=== PATIENT | female | born 2000 | race Caucasian/White ===

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

== ENCOUNTER → 2018-07-05 | Outpatient (CLI) | payer OTHER | END | disposition home or self-care (01) | LOC: C.LAB 11:50 | PROVIDERS: ATTEND Family Medicine | DX: Z13.29 Encounter for screening for other suspected endocrine disorder (principal); Z13.21 Encounter for screening for nutritional disorder; Z13.228 Encounter for screening for other metabolic disorders; Z13.0 Encounter for screening for diseases of the blood and blood-forming organs and certain disorders involving the immune mechanism ==

== ENCOUNTER → 2018-07-09 | Outpatient (CLI) | payer OTHER | END | disposition home or self-care (01) | LOC: C.LAB 11:49 | PROVIDERS: ATTEND Family Medicine | DX: Z13.29 Encounter for screening for other suspected endocrine disorder (principal); Z13.21 Encounter for screening for nutritional disorder; Z13.228 Encounter for screening for other metabolic disorders; Z13.0 Encounter for screening for diseases of the blood and blood-forming organs and certain disorders involving the immune mechanism ==

== ENCOUNTER 2025-03-18 07:31 | Inpatient (IN) ==
[2025-03-18] MEDS ORDERED: LIDOCAINE 1% LOCAL 20 ML VIAL INFIL PRN (08:29)
[2025-03-18] MEDS: LACTATED RINGER'S 1,000 ML IV PRN (09:09)
[2025-03-18] MEDS: OXYTOCIN 30 UNITS/NSS 30 UNITS/500 ML BAG IV PRN ×2 (09:11→23:58)
[2025-03-18 09:15] LABS: Hematocrit (blood only) 38.6 % (37.0-47.0); Hemoglobin 13.2 g/dl (12.0-16.0); Mean Corpuscular Hemoglobin 31.1 pg (25.0-34.0); Mean Corpuscular Hgb Conc 34.2 g/dL (32.0-36.0); Mean Platelet Volume 10.6 fL (9.4-12.4); Platelet Count 252 K/uL (130-400); RDW Coefficient of Variation 13.5 % (11.5-14.5); RDW Standard Deviation 43.7 fL (36.4-46.3); Red Blood Count 4.24 M/uL (4.20-5.40); White Blood Count 7.59 K/ul (4.8-10.8)
--- NOTE | 2025-03-18 09:19 | History & Physical Report ---
Date of Service March 18, 2025 Assessment & Plan (1) Supervision of normal intrauterine in primigravida: Plan: Deepti is a 24-year-old currently at 39 weeks 2 days gestational age presents for induction of labor. 1. Fetus: Category 1 tracing 2. Labor: Will start with oxytocin per regular protocol. Will plan for rupture of membranes when appropriate 3. GBS negative 4. Vitals within normal limits (2) Encounter for induction of labor: Admission and Anticipated Discharge Date Admission Date: March 18, 2025 History of Present Illness Primary Care Provider: Belkys Woodward DO Deepti is a 24-year-old G1, P0 currently at 39 weeks 2 days gestational age presents for induction of labor. plans: Obesity (BMI 40 and higher @ beginning of ) *Growth US @ 32wks *Weekly NSTs @ 34wks *BMI 40 or greater offer detailed/level II anatomy at [facility] *BMI 40 or above offer delivery by [facility].----IOL 03/18 *BMI 50 or greater scheduled detailed/level II anatomy at [facility] Rubella Equivocal *Recommend PPX MMR Low dose aspirin *Nulliparity and increase BM OB Labs: Blood Type O Positive 08/06/24 Antibody Screen NEGATIVE 08/06/24 Hgb 12.9 g/dl (12.0-16.0) 01/01/25 Hct 36.5 % (37.0-47.0) L 01/01/25 MCV 87.4 fL (80.0-100.0) 12/19/24 Plt Count 233 K/uL (130-400) 12/19/24 Rubella IgG Antibody Equivocal (Immune) L 08/06/24 Treponema pallidum Ab Negative (Negative) 01/01/25 Hep Bs Antigen Negative (Negative) 08/06/24 Hepatitis C Antibody Negative (Negative) 08/06/24 Hepatitis C Ab (EIA) NON-REACTIVE (NON-REACTIVE) 03/09/23 HIV 1&2 Ab/P24 Ag 4thGn Negative (Negative) 08/06/24 Glucose 1 Hr 50 gm 139 mg/dl (70-130) H 10/08/24 OB Optional Labs: Chlamydia trachomatis RNA Not Detected (NotDetected) 08/06/24 Neisseria gonorrhoeae RNA Not Detected (NotDetected) 08/06/24 Thyroid Stimulating Hormone (TSH) 2.080 uIu/ml (0.300-4.500) 04/24/19 Labs Reviewed: Declines genetics--mln passed 16 week gtt-alh Allergies Allergy/AdvReac Type Severity Reaction Status Date / Time chlorhexidine Allergy Mild Rash Verified 03/18/25 08:03 Penicillins Allergy Mild Hives Verified 03/18/25 08:03 Sulfa (Sulfonamide Allergy Mild Hives Verified 03/18/25 08:03 Antibiotics) tree nut Allergy Mild Mouth Verified 03/18/25 08:03 tingly Home Medications Medication Instructions Recorded Confirmed Type fluticasone propionate 50 2 spray intranasal DAILY PRN 06/24/19 03/18/25 History mcg/actuation nasal Allergy Symptoms spray,suspension (Flonase Allergy Relief) bupropion HCl 150 mg tablet,12 hr 150 mg PO QAM 04/26/24 03/18/25 History sustained-release (Wellbutrin SR) albuterol sulfate 90 mcg/actuation 1 inh inhalation QID PRN Shortness 06/03/24 03/18/25 History breath activated powder inhaler Of Breath prenat.vits,mag,fgi-[id number]-jferx 1 tab PO DAILY 07/30/24 03/18/25 History sertraline 50 mg tablet 125 mg PO DAILY 12/03/24 03/18/25 History breast pump #1 ea 02/13/25 03/17/25 Rx Patient History Medical History (Updated 03/18/25 @ 09:18 by Rogelio Caldera MD) History of COVID-07 Sep 2023 GERD (gastroesophageal reflux disease) no meds > controlled Temporomandibular joint disorder occ clicks, no locking Anxiety Asthma well controlled > only uses inhaler if sick Seasonal allergies Nausea and vomiting after administration of anesthetic agent Surgical History (Updated 03/18/25 @ 08:03 by Johanna Mccormack RN) History of arthroscopy of right shoulder History of cholecystectomy Hx of hand surgery Right Little Finger Excisional Biopsy(Right) x 2 History of surgery birthmark removed off right ankle History of tooth extraction wisdom teeth Family History Grandmother (Paternal) Lupus Breast cancer Grandmother (Maternal) Cancer Family/Other Ovarian cancer Grandfather (Paternal) Prostate cancer Kidney disease Grandfather (Maternal) Lung cancer Other Colon cancer Diabetes Hypertension Liver disease Twin Social History Smoking Status: Never smoker Second Hand Exposure: No; Do You Dip or Chew Tobacco: No; Hx Alcohol Use: No Hx Substance Use: No Preferred Language: Vietnamese Communication Ability: Effective Canceling And Cutting Control Clerk Required: No Beliefs That Will Affect Care: None marital status: marital status details: Jone (28) [phone] Current Living Situation: Spouse Current Living Situation Comment: lives with spouse, no pets. current occupational status: employed current occupation: Nurse at [employer] Other Information That Helps Us Care for You: No Feels Safe at Home: Yes Safety Concerns: Feels Safe At This Time Assistive Devices: None Physical Exam Genitourinary: Manual OB Exam: + cervical dilation 3 cm, + cervical effacement 70% and + station -2 OB Exam Monitor Tracing: + external FHT monitor used, + external uterine monitor used, + category I and + normal FHT variability Results & Data Vital Signs (Past 12 Hours) Vital Signs Temp Pulse Resp BP 03/18/25 09:07 85 03/18/25 09:07 130/75 03/18/25 07:48 37.0 C 20 03/18/25 07:45 123 H 121/68 Coding Level of Care Code None Diagnoses Encounter for supervision of normal first in third trimester Z34.03 Trimester: third trimester Encounter for induction of labor Z34.90 (1) Supervision of normal intrauterine in primigravida Trimester: third trimester Qualified Code(s): Z34.03 - Encounter for supervision of normal first , third trimester
[2025-03-18] MEDS ORDERED: ePHEDrine sulfate 50 MG/ML AMP ONE (15:19)
[2025-03-18] MEDS: ACETAMINOPHEN 500 MG TAB PO PRN (15:39)
[2025-03-18] MEDS: LIDOCAINE 2%/EPINEPHRINE 1:200,000 20 ML PF ONE (16:14)
[2025-03-18] MEDS: fentANYL 2 MCG/ML BUPIVacaine 0.125%-NSS 100ML BAG ONE (16:15)
[2025-03-18] MEDS: BUPIVACAINE 0.25% PF 30 ML VIAL ONE (16:15)
[2025-03-18] MEDS: SODIUM CHLORIDE 0.9% PF INJ 10 ML VIAL ONE (16:15)
[2025-03-18] MEDS: fentaNYL citrate PF 100 MCG/2 ML VIAL ONE (16:16)
[2025-03-18] MEDS ORDERED: NALOXONE HCL 1 MG in SODIUM CHLORIDE 0.9% 1,000 ML IV PRN (16:24)
[2025-03-18] MEDS ORDERED: BUPIVACAINE 0.25% PF 30 ML VIAL EPI PRN (16:24)
[2025-03-18] MEDS ORDERED: PROMETHAZINE 6.25 MG/50.25 ML BAG IV PRN (16:24)
[2025-03-18] MEDS ORDERED: ROPIVACAINE 0.5% PF 5 MG/ML 20 ML VIAL EPI PRN (16:24)
[2025-03-18] MEDS ORDERED: LIDOCAINE 2% MPF LOCAL 5 ML VIAL EPI PRN (16:24)
[2025-03-18] MEDS ORDERED: ONDANSETRON INJ 2 MG/ML 2 ML VIAL IV PRN (16:24)
[2025-03-18] MEDS ORDERED: fentaNYL citrate PF 100 MCG/2 ML VIAL EPI PRN (16:24)
[2025-03-18] MEDS ORDERED: fentANYL 2 MCG/ML BUPIVacaine 0.125%-NSS 100ML BAG EPI PRN (16:24)
[2025-03-18] MEDS ORDERED: SODIUM CHLORIDE 0.9% PF INJ 10 ML VIAL EPI PRN (16:24)
[2025-03-18] MEDS ORDERED: NALBUPHINE HCL INJ 10 MG/ML AMP IV PRN (16:24)
[2025-03-18] MEDS ORDERED: diphenhydrAMINE 50 MG/ML VIAL IV PRN (16:24)
[2025-03-18] MEDS ORDERED: ePHEDrine sulfate 50 MG/ML AMP IV PRN (16:24)
[2025-03-18] MEDS ORDERED: NALOXONE HCL 0.4 MG/1 ML VIAL/CARP IV PRN (16:24)
--- NOTE | 2025-03-18 16:24 | Anesthesiology Consultation ---
Date of Service March 18, 2025 Assessment & Plan Chart Review Chart Review: Patient NOT seen in Pre Admission Testing and Acceptable Risk for Labor Epidural Consults Requested none ASA ASA2 Proposed Anesthesia Anesthesia Type: Labor Epidural Risk / Benefits Reviewed With: PT / POA / Parent / Guardian, Accepts Plan and Informed Consent Obtained History Height/Weight Height: 5 ft 6 in Weight: 120.656 kg Allergies Allergy/AdvReac Type Severity Reaction Status Date / Time chlorhexidine Allergy Mild Rash Verified 03/18/25 08:03 Penicillins Allergy Mild Hives Verified 03/18/25 08:03 Sulfa (Sulfonamide Allergy Mild Hives Verified 03/18/25 08:03 Antibiotics) tree nut Allergy Mild Mouth Verified 03/18/25 08:03 tingly Medications Home Medications Medication Instructions Recorded Confirmed Last Taken fluticasone propionate 50 2 spray intranasal DAILY PRN 06/24/19 03/18/25 Unknown mcg/actuation nasal Allergy Symptoms spray,suspension (Flonase Allergy Relief) bupropion HCl 150 mg tablet,12 hr 150 mg PO QAM 04/26/24 03/18/25 03/18/25 06:00 sustained-release (Wellbutrin SR) albuterol sulfate 90 mcg/actuation 1 inh inhalation QID PRN Shortness 06/03/24 03/18/25 Unknown breath activated powder inhaler Of Breath prenat.vits,mag,idn-rubl-khzfk 1 tab PO DAILY 07/30/24 03/18/25 03/17/25 08:00 sertraline 50 mg tablet 125 mg PO DAILY 12/03/24 03/18/25 03/17/25 21:00 breast pump #1 ea 02/13/25 03/17/25 Unknown Active Medications Generic Name Dose Route Start Last Admin Trade Name Freq PRN Reason Stop Dose Admin Acetaminophen 1,000 mg 03/18/25 08:29 03/18/25 15:39 Acetaminophen 500 Mg Tab PO 04/17/25 08:28 1,000 mg Q8H PRN Administration Pain Lactated Ringer's 1,000 mls @ 125 mls/hr 03/18/25 08:29 03/18/25 16:15 Lr IV 03/19/25 08:28 125 mls/hr .Q8H PRN Infusion L&D Protocol Protocol Oxytocin 30 units in 500 mls @ 18 mls/hr 03/18/25 08:29 03/18/25 15:00 Pitocin 30 Units/Nss IV 03/20/25 08:28 1.08 units/hr .Q24H PRN 18 mls/hr Labor Induction/Augmentation Titration Protocol 1.08 UNITS/HR Past Medical History Medical History (Updated 03/18/25 @ 09:18 by Rogelio Caldera MD) History of COVID-07 Sep 2023 GERD (gastroesophageal reflux disease) no meds > controlled Temporomandibular joint disorder occ clicks, no locking Anxiety Asthma well controlled > only uses inhaler if sick Seasonal allergies Nausea and vomiting after administration of anesthetic agent Exercise / Class Metabolic Activity II 4-5 Yardwork/Stairs/Walk up hill Past Family History Family History Grandmother (Paternal) Lupus Breast cancer Grandmother (Maternal) Cancer Family/Other Ovarian cancer Grandfather (Paternal) Prostate cancer Kidney disease Grandfather (Maternal) Lung cancer Other Colon cancer Diabetes Hypertension Liver disease Twin Past Surgical History Surgical History (Updated 03/18/25 @ 08:03 by Johanna Mccormack RN) History of arthroscopy of right shoulder History of cholecystectomy Hx of hand surgery Right Little Finger Excisional Biopsy(Right) x 2 History of surgery birthmark removed off right ankle History of tooth extraction wisdom teeth Past Anesthesia History No Hx of Anesthesia Complications and No Family Hx of Anesthesia Complications History of PONV No Hx of PONV and No Hx of Motion Sickness Social History Smoking Status: Never smoker Do You Dip or Chew Tobacco: No Hx Alcohol Use: No Alcohol type: wine and hard liquor alcohol intake frequency: holidays/special occasions only Hx Substance Use: No substance use type: does not use Physical Exam Vital Signs Last Vital Signs Temp 36.9 C 03/18/25 14:56 Pulse 93 H 03/18/25 16:20 Resp 20 03/18/25 14:56 BP 117/70 03/18/25 16:20 Pulse Ox 98 03/18/25 16:17 ENMT Mouth: no dentition abnormality Thyromental Distance: > or= 3.5 Finger Breadths Mallampati Class: II Neck normal visual inspection Respiratory normal respiratory effort Auscultation: lungs clear to auscultation bilaterally Cardiovascular Rate/Rhythm: regular rate and regular rhythm Psychiatric Orientation: alert Testing Laboratory Results 03/18/25 08:49 Blood Type O Positive 03/18/25 08:49 Antibody Screen NEGATIVE 03/18/25 08:49
[2025-03-18] MEDS: fentaNYL citrate PF 100 MCG/2 ML VIAL EPI STA (17:12)
[2025-03-18] MEDS: LIDOCAINE 2%/EPINEPHRINE 1:200,000 20 ML PF EPI STA (17:13)
[2025-03-18] MEDS: BUPIVACAINE 0.25% PF 30 ML VIAL EPI STA (17:13)
[2025-03-18] MEDS: SODIUM CHLORIDE 0.9% PF INJ 10 ML VIAL EPI STA (17:14)
--- NOTE | 2025-03-18 21:25 | Labor Progress Brief Note ---
Date of Service March 18, 2025 Subjective Reason For Note: Routine Evaluation Assessment & Plan (1) Supervision of normal intrauterine in primigravida: Plan: Deepti is a 24-year-old currently at 39 weeks 2 days gestational age presents for induction of labor. 1. Fetus: Category 1 tracing 2. Labor: Oxytocin per regular protocol. Status post rupture membranes for clear fluid at around 4:30 PM. IUPC and FSE placed 3. GBS negative 4. Vitals within normal limits Trimester: third trimester Qualified Code(s): Z34.03 - Encounter for supervision of normal first , third trimester (2) Encounter for induction of labor: Admission and Anticipated Discharge Date Admission Date: March 18, 2025 Physical Exam Genitourinary: Manual OB Exam: + cervical dilation (5-6), + cervical effacement 80%, + station -2 and + amniotic fluid clear OB Exam Monitor Tracing: + external FHT monitor used, + external uterine monitor used, + category I and + normal FHT variability Results & Data Vital Signs (Past 12 Hours) Vital Signs Temp Pulse Resp BP Pulse Ox 03/18/25 21:17 100 03/18/25 21:17 95 H 03/18/25 21:17 83 03/18/25 21:17 137/80 03/18/25 21:12 98 03/18/25 21:12 82 03/18/25 21:07 99 03/18/25 21:07 87 03/18/25 21:03 99 H 03/18/25 21:03 115/62 03/18/25 21:02 99 03/18/25 21:02 80 03/18/25 20:57 100 03/18/25 20:57 82 03/18/25 20:52 100 03/18/25 20:52 87 03/18/25 20:47 98 03/18/25 20:47 90 03/18/25 20:47 123/61 03/18/25 20:42 98 03/18/25 20:42 97 H 03/18/25 20:37 98 03/18/25 20:37 87 03/18/25 20:32 97 03/18/25 20:32 83 03/18/25 20:32 81 03/18/25 20:32 121/70 03/18/25 20:27 98 03/18/25 20:27 74 03/18/25 20:22 99 03/18/25 20:22 80 03/18/25 20:18 88 03/18/25 20:18 120/75 03/18/25 20:17 99 03/18/25 20:17 75 03/18/25 20:12 99 03/18/25 20:12 89 03/18/25 20:07 100 03/18/25 20:07 108 H 03/18/25 20:02 100 03/18/25 20:02 103 H 03/18/25 20:02 93 H 03/18/25 20:02 107/67 03/18/25 19:57 100 03/18/25 19:57 73 03/18/25 19:52 100 03/18/25 19:52 76 03/18/25 19:47 100 03/18/25 19:47 106 H 03/18/25 19:47 96 H 03/18/25 19:47 106/67 03/18/25 19:42 100 03/18/25 19:42 77 03/18/25 19:37 99 03/18/25 19:37 76 03/18/25 19:32 100 03/18/25 19:32 88 03/18/25 19:32 82 03/18/25 19:32 112/73 03/18/25 19:27 100 03/18/25 19:27 82 03/18/25 19:22 100 03/18/25 19:22 77 03/18/25 19:17 100 03/18/25 19:17 86 03/18/25 19:17 114/69 03/18/25 19:12 100 03/18/25 19:12 90 03/18/25 19:10 18 03/18/25 19:10 36.6 C 18 03/18/25 19:07 99 03/18/25 19:07 73 03/18/25 19:03 73 03/18/25 19:03 118/68 03/18/25 19:02 99 03/18/25 19:02 73 03/18/25 18:57 99 03/18/25 18:57 94 H 03/18/25 18:52 100 03/18/25 18:52 69 03/18/25 18:48 73 03/18/25 18:48 129/73 04/29/25 18:47 100 03/18/25 18:47 68 03/18/25 18:42 99 03/18/25 18:42 101 H 03/18/25 18:37 98 03/18/25 18:37 73 03/18/25 18:32 98 03/18/25 18:32 90 03/18/25 18:32 105/59 L 03/18/25 18:27 97 03/18/25 18:27 85 03/18/25 18:22 96 03/18/25 18:22 68 03/18/25 18:17 98 03/18/25 18:17 64 03/18/25 18:17 117/65 03/18/25 18:16 20 03/18/25 18:16 20 03/18/25 18:12 98 03/18/25 18:12 72 03/18/25 18:07 99 03/18/25 18:07 89 03/18/25 18:03 61 03/18/25 18:03 116/67 03/18/25 18:02 99 03/18/25 18:02 65 03/18/25 17:57 98 03/18/25 17:57 67 03/18/25 17:52 100 03/18/25 17:52 97 H 03/18/25 17:47 99 03/18/25 17:47 83 03/18/25 17:47 70 03/18/25 17:47 116/69 03/18/25 17:46 20 03/18/25 17:46 20 03/18/25 17:45 20 03/18/25 17:45 36.8 C 20 03/18/25 17:42 99 03/18/25 17:42 81 03/18/25 17:37 100 03/18/25 17:37 86 03/18/25 17:32 96 03/18/25 17:32 78 03/18/25 17:32 116/64 03/18/25 17:27 97 03/18/25 17:27 86 03/18/25 17:22 96 03/18/25 17:22 86 03/18/25 17:17 96 03/18/25 17:17 63 03/18/25 17:17 101/60 03/18/25 17:16 20 03/18/25 17:16 20 03/18/25 17:12 99 03/18/25 17:12 84 03/18/25 17:07 99 03/18/25 17:07 78 03/18/25 17:02 100 03/18/25 17:02 86 03/18/25 17:02 104/60 03/18/25 16:57 99 03/18/25 16:57 77 03/18/25 16:52 99 03/18/25 16:52 97 H 03/18/25 16:47 99 03/18/25 16:47 70 03/18/25 16:47 108/68 03/18/25 16:46 20 03/18/25 16:46 20 03/18/25 16:43 110 H 03/18/25 16:43 110/62 03/18/25 16:42 100 03/18/25 16:42 104 H 03/18/25 16:37 99 03/18/25 16:37 83 03/18/25 16:37 73 03/18/25 16:37 125/74 03/18/25 16:33 95 H 03/18/25 16:33 119/66 03/18/25 16:32 99 03/18/25 16:32 93 H 03/18/25 16:28 78 03/18/25 16:28 126/76 03/18/25 16:27 99 03/18/25 16:27 110 H 03/18/25 16:22 98 03/18/25 16:22 101 H 03/18/25 16:20 20 03/18/25 16:20 36.6 C 20 03/18/25 16:20 93 H 03/18/25 16:20 117/70 03/18/25 16:18 83 03/18/25 16:18 125/73 03/18/25 16:17 98 03/18/25 16:17 101 H 03/18/25 16:16 96 H 03/18/25 16:16 123/71 03/18/25 16:14 89 03/18/25 16:14 127/70 03/18/25 16:12 98 03/18/25 16:12 88 03/18/25 16:11 83 03/18/25 16:11 133/84 03/18/25 16:07 99 03/18/25 16:07 82 03/18/25 16:04 82 03/18/25 16:04 135/85 03/18/25 16:02 99 03/18/25 16:02 93 H 03/18/25 15:57 99 03/18/25 15:57 83 03/18/25 15:52 99 03/18/25 15:52 96 H 03/18/25 14:56 20 03/18/25 14:56 36.9 C 20 03/18/25 14:55 76 03/18/25 14:55 130/77 03/18/25 13:41 98 H 03/18/25 13:41 116/73 03/18/25 12:33 95 H 03/18/25 12:33 108/65 03/18/25 11:41 95 H 03/18/25 11:41 37.1 C 20 137/74 03/18/25 10:16 86 03/18/25 10:16 107/56 L Coding Level of Care Code None Diagnoses Encounter for supervision of normal first in third trimester Z34.03 Trimester: third trimester Encounter for induction of labor Z34.90
--- NOTE | 2025-03-19 00:08 | Delivery Summary ---
Vaginal Delivery Summary Date of Service March 19, 2025 Vaginal Delivery Summary and 1st Degree LAC Patient progressed to 10 cm dilated, 100% effaced, +2 station pushed intact perineum with epidural anesthesia and delivered a viable with weight and Apgars pending. Head of the delivered without difficulty quickly followed by shoulders and body. was noted to have good tone without spontaneous cry and a 32nd delayed cord clamping with stimulation was initiated. Cord was then double clamped and cut taken to the waiting nursery staff for evaluation. Cord blood obtained and attention turned deliver the placenta which delivered intact three-vessel cord gentle cord traction. Inspection of perineum vagina and cervix there is noted to be a first-degree perineal laceration and a right labial laceration which were repaired with 4-0 Vicryl in continuous running stitch. Needle sponge and instrument counts are correct at the completion of the case. Both mother and stable in the immediate post delivery timeframe. No complications noted and blood loss per QBL [facility] Vaginal Delivery Charge Delivery Type Details: and 1st Degree LAC
[2025-03-19] MEDS ORDERED: BENZOCAINE 20% SPRY 85 APPLN/85 GM CAN EXT PRN (00:09)
[2025-03-19] MEDS ORDERED: HYDROCORTISONE ACETATE 25 MG SUPP PR PRN (00:09)
[2025-03-19] MEDS ORDERED: OXYTOCIN 30 UNITS/NSS 30 UNITS/500 ML BAG IV PRN (00:09)
[2025-03-19] MEDS ORDERED: bisacodyL 10 MG SUPP PR PRN (00:09)
[2025-03-19] MEDS: miSOPROStoL 200 MCG TAB PR ONE (00:13)
[2025-03-19] MEDS: IBUPROFEN 600 MG TAB PO PRN (03:12)
[2025-03-19] MEDS: CALCIUM CARBONATE 500 MG CHEWABLE TAB PO PRN (06:31)
--- NOTE | 2025-03-19 07:34 | Obstetrical Progress Note ---
Date of Service March 19, 2025 Assessment & Plan (1) Encounter for care and examination after delivery: Day 1 status post vaginal delivery. Patient doing well. Routine care Subjective Ambulation: ambulating normally Voiding: no voiding problems Passing Gas:: Yes Diet Tolerance:: regular diet Lochia:: Moderate Physical Exam Constitutional WD/WN, vitals as above Respiratory normal respiratory effort; no respiratory distress and no labored breathing Cardiovascular Extremities: no calf tenderness Gastrointestinal (Abdomen) Inspection/Auscultation: abdomen normal to inspection; abdomen not distended Percussion/Palpation: abdomen soft; abdomen nontender, no guarding and abdomen not rigid Genitourinary OB Exam Abdomen: + fundal height Fundus: + firm and + relation to umbilicus (Below); not tender or not boggy Results & Data Vital Signs (Past 12 Hours) Vital Signs Temp Pulse Pulse Resp BP BP Pulse Ox 03/19/25 02:45 37 C 86 18 128/61 98 03/19/25 01:57 96 H 128/61 03/19/25 00:47 85 135/69 03/19/25 00:17 101 H 110/65 98 03/19/25 00:12 85 97 03/19/25 00:07 91 H 97 03/19/25 00:02 97 03/19/25 00:02 85 03/19/25 00:02 78 129/71 03/18/25 23:57 97 03/18/25 23:57 86 03/18/25 23:52 97 03/18/25 23:52 95 H 03/18/25 23:48 96 H 03/18/25 23:48 126/78 03/18/25 23:47 99 03/18/25 23:47 105 H 03/18/25 23:44 93 03/18/25 23:44 135 H 03/18/25 23:42 97 03/18/25 23:42 95 H 03/18/25 23:37 96 03/18/25 23:37 116 H 03/18/25 23:33 81 03/18/25 23:33 146/72 H 03/18/25 23:32 99 03/18/25 23:32 72 03/18/25 23:27 98 03/18/25 23:27 124 H 03/18/25 23:22 96 03/18/25 23:22 138 H 03/18/25 23:18 105 H 03/18/25 23:18 129/71 03/18/25 23:17 97 03/18/25 23:17 107 H 03/18/25 23:12 96 03/18/25 23:12 96 H 03/18/25 23:07 97 03/18/25 23:07 128 H 03/18/25 23:02 95 03/18/25 23:02 135 H 03/18/25 23:02 113/65 03/18/25 22:57 96 03/18/25 22:57 120 H 03/18/25 22:52 97 03/18/25 22:52 111 H 03/18/25 22:48 114 H 03/18/25 22:48 129/61 03/18/25 22:47 98 03/18/25 22:47 130 H 03/18/25 22:42 98 03/18/25 22:42 124 H 03/18/25 22:39 93 03/18/25 22:39 128 H 03/18/25 22:37 100 03/18/25 22:37 136 H 03/18/25 22:32 98 03/18/25 22:32 111 H 03/18/25 22:32 110/62 03/18/25 22:27 99 03/18/25 22:27 135 H 03/18/25 22:24 82 L 03/18/25 22:24 115 H 03/18/25 22:22 100 03/18/25 22:22 116 H 03/18/25 22:17 100 03/18/25 22:17 128 H 03/18/25 22:17 123 H 03/18/25 22:17 112/67 03/18/25 22:15 86 L 03/18/25 22:15 109 H 03/18/25 22:12 88 L 03/18/25 22:12 123 H 03/18/25 22:07 100 03/18/25 22:07 106 H 03/18/25 22:02 100 03/18/25 22:02 117 H 03/18/25 22:02 121/73 03/18/25 21:57 100 03/18/25 21:57 116 H 03/18/25 21:53 92 03/18/25 21:53 92 H 03/18/25 21:52 100 03/18/25 21:52 88 03/18/25 21:47 100 03/18/25 21:47 81 03/18/25 21:47 77 03/18/25 21:47 123/67 03/18/25 21:42 99 03/18/25 21:42 88 03/18/25 21:37 100 03/18/25 21:37 94 H 03/18/25 21:32 97 03/18/25 21:32 92 H 03/18/25 21:32 88 03/18/25 21:32 127/74 03/18/25 21:31 92 03/18/25 21:31 80 03/18/25 21:27 98 03/18/25 21:27 87 03/18/25 21:22 98 03/18/25 21:22 83 03/18/25 21:17 100 03/18/25 21:17 95 H 03/18/25 21:17 83 03/18/25 21:17 137/80 03/18/25 21:12 98 03/18/25 21:12 82 03/18/25 21:07 99 03/18/25 21:07 87 03/18/25 21:04 18 03/18/25 21:04 36.5 C 18 03/18/25 21:03 99 H 03/18/25 21:03 115/62 03/18/25 21:02 99 03/18/25 21:02 80 03/18/25 20:57 100 03/18/25 20:57 82 03/18/25 20:52 100 03/18/25 20:52 87 03/18/25 20:47 98 03/18/25 20:47 90 03/18/25 20:47 123/61 03/18/25 20:42 98 03/18/25 20:42 97 H 03/18/25 20:37 98 03/18/25 20:37 87 03/18/25 20:32 97 03/18/25 20:32 83 03/18/25 20:32 81 03/18/25 20:32 121/70 03/18/25 20:27 98 03/18/25 20:27 74 03/18/25 20:22 99 03/18/25 20:22 80 03/18/25 20:18 88 03/18/25 20:18 120/75 03/18/25 20:17 99 03/18/25 20:17 75 03/18/25 20:12 99 03/18/25 20:12 89 03/18/25 20:07 100 03/18/25 20:07 108 H 03/18/25 20:02 100 03/18/25 20:02 103 H 03/18/25 20:02 93 H 03/18/25 20:02 107/67 03/18/25 19:57 100 03/18/25 19:57 73 03/18/25 19:52 100 03/18/25 19:52 76 03/18/25 19:47 100 03/18/25 19:47 106 H 03/18/25 19:47 96 H 03/18/25 19:47 106/67 03/18/25 19:42 100 03/18/25 19:42 77 03/18/25 19:37 99 03/18/25 19:37 76 O2 Del Method 03/19/25 02:45 Room Air 03/19/25 01:57 03/19/25 00:47 03/19/25 00:17 03/19/25 00:12 03/19/25 00:07 03/19/25 00:02 03/19/25 00:02 03/19/25 00:02 03/18/25 23:57 03/18/25 23:57 03/18/25 23:52 03/18/25 23:52 03/18/25 23:48 03/18/25 23:48 03/18/25 23:47 03/18/25 23:47 03/18/25 23:44 03/18/25 23:44 03/18/25 23:42 03/18/25 23:42 03/18/25 23:37 03/18/25 23:37 03/18/25 23:33 03/18/25 23:33 03/18/25 23:32 03/18/25 23:32 03/18/25 23:27 03/18/25 23:27 03/18/25 23:22 03/18/25 23:22 03/18/25 23:18 03/18/25 23:18 03/18/25 23:17 03/18/25 23:17 03/18/25 23:12 03/18/25 23:12 03/18/25 23:07 03/18/25 23:07 03/18/25 23:02 03/18/25 23:02 03/18/25 23:02 03/18/25 22:57 03/18/25 22:57 03/18/25 22:52 03/18/25 22:52 03/18/25 22:48 03/18/25 22:48 03/18/25 22:47 03/18/25 22:47 03/18/25 22:42 03/18/25 22:42 03/18/25 22:39 03/18/25 22:39 03/18/25 22:37 03/18/25 22:37 03/18/25 22:32 03/18/25 22:32 03/18/25 22:32 03/18/25 22:27 03/18/25 22:27 03/18/25 22:24 03/18/25 22:24 03/18/25 22:22 03/18/25 22:22 03/18/25 22:17 03/18/25 22:17 03/18/25 22:17 03/18/25 22:17 03/18/25 22:15 03/18/25 22:15 03/18/25 22:12 03/18/25 22:12 03/18/25 22:07 03/18/25 22:07 03/18/25 22:02 03/18/25 22:02 03/18/25 22:02 03/18/25 21:57 03/18/25 21:57 03/18/25 21:53 03/18/25 21:53 03/18/25 21:52 03/18/25 21:52 03/18/25 21:47 03/18/25 21:47 03/18/25 21:47 03/18/25 21:47 03/18/25 21:42 03/18/25 21:42 03/18/25 21:37 03/18/25 21:37 03/18/25 21:32 03/18/25 21:32 03/18/25 21:32 03/18/25 21:32 03/18/25 21:31 03/18/25 21:31 03/18/25 21:27 03/18/25 21:27 03/18/25 21:22 03/18/25 21:22 03/18/25 21:17 03/18/25 21:17 03/18/25 21:17 03/18/25 21:17 03/18/25 21:12 03/18/25 21:12 03/18/25 21:07 03/18/25 21:07 03/18/25 21:04 03/18/25 21:04 03/18/25 21:03 03/18/25 21:03 03/18/25 21:02 03/18/25 21:02 03/18/25 20:57 03/18/25 20:57 03/18/25 20:52 03/18/25 20:52 03/18/25 20:47 03/18/25 20:47 03/18/25 20:47 03/18/25 20:42 03/18/25 20:42 03/18/25 20:37 03/18/25 20:37 03/18/25 20:32 03/18/25 20:32 03/18/25 20:32 03/18/25 20:32 03/18/25 20:27 03/18/25 20:27 03/18/25 20:22 03/18/25 20:22 03/18/25 20:18 03/18/25 20:18 03/18/25 20:17 03/18/25 20:17 03/18/25 20:12 03/18/25 20:12 03/18/25 20:07 03/18/25 20:07 03/18/25 20:02 03/18/25 20:02 03/18/25 20:02 03/18/25 20:02 03/18/25 19:57 03/18/25 19:57 03/18/25 19:52 03/18/25 19:52 03/18/25 19:47 03/18/25 19:47 03/18/25 19:47 03/18/25 19:47 03/18/25 19:42 03/18/25 19:42 03/18/25 19:37 03/18/25 19:37
[2025-03-19] MEDS: PRENATAL VITAMIN 1 TAB PO SCH (08:37)
[2025-03-19] MEDS: DOCUSATE SODIUM 100 MG CAP PO SCH (08:37)
[2025-03-19] MEDS: FERROUS SULFATE 325 MG TAB PO SCH (08:37)
[2025-03-19] MEDS: buPROPion SR 150 MG TABCR PO SCH (08:38)
[2025-03-19] MEDS ORDERED: SERTRALINE HCL 50 MG TABLET PO SCH (09:00)
--- NOTE | 2025-03-19 09:37 | Anesthesia Procedure Note ---
Date of Service March 19, 2025 Anesthesia Post Epidural Note Vital Signs Vital Signs: Temp Pulse Resp BP Pulse Ox O2 Del Method 97.9 F 84 18 119/79 98 Room Air 03/19/25 07:35 03/19/25 07:35 03/19/25 07:35 03/19/25 07:35 03/19/25 07:35 03/19/25 07:35 Notes Mental Status: alert / awake / arousable and participated in evaluation Nausea / Vomiting: adequately controlled Pain: adequately controlled Airway Patency, RR, SpO2: stable & adequate BP & HR: stable & adequate Hydration State: stable & adequate Neuraxial Anesthesia: was administered and sensory block is resolving Anesthetic Complications: no major complications apparent and Pt Satisfied with anesthetic care Epidural: Removed without complications and With tip intact
[2025-03-19] MEDS ORDERED: Nursing to Pharmacy Communication SCH (15:15)
[2025-03-19] MEDS: ACETAMINOPHEN 325 MG TAB PO PRN (15:24)
[2025-03-19 15:46] VITALS: O2SAT 98
[2025-03-19] MEDS: hydrOXYzine HCl 25 MG TAB PO PRN (18:35)
[2025-03-19 19:27] VITALS: TEMP 97.7
[2025-03-19] MEDS: SERTRALINE HCL 50 MG TABLET PO SCH (21:14)
--- NOTE | 2025-03-20 07:20 | Obstetrical Progress Note ---
Date of Service March 20, 2025 Assessment & Plan (1) Encounter for care and examination after delivery: PPD#2 ready to go home today, instructions reviewed Subjective Ambulation: ambulating normally Voiding: no voiding problems Passing Gas:: Yes Diet Tolerance:: regular diet Lochia:: Small Feeding Type:: breast feeding Physical Exam Constitutional WD/WN, vitals as above Eyes PERRL, conjunctivae normal, anicteric sclerae Neck normal visual inspection Respiratory normal respiratory effort and able to speak in complete sentences; no respiratory distress and no labored breathing Cardiovascular Rate/Rhythm: regular rate and regular rhythm Extremities: no edema Chest (Breasts) Chest: normal inspection of chest Gastrointestinal (Abdomen) Inspection/Auscultation: abdomen normal to inspection Soft, postgravid Psychiatric A+Ox3, euthymic affect Genitourinary OB Exam Abdomen: + fundal height Fundus: + firm and + relation to umbilicus (fundus just below umbilicus); not tender Results & Data Vital Signs (Past 12 Hours) Vital Signs BP 03/20/25 05:00 116/80
[2025-03-20] MEDS: DIPHTHER/TETAN/PERTUS Vaccine (Tdap, Adol/Adult) 0.5mL IM ONE (07:30)
[2025-03-20] MEDS: MEASLES, MUMPS & RUBELLA VIRUS VACCINE (MMR) 0.5ML VIAL SQ ONE (09:06)
[2025-03-20 10:16] VITALS: BP 106/70; PULSE 76; RESP 20
[2025-03-20] MEDS ORDERED: bisacodyL 5 MG TABEC PO SCH (20:00)
== END 2025-03-20 12:00 | disposition home or self-care (01) | DRG 807 ==
LOC: 4S1 07:31 → 4E2 03-19 04:19